=== PATIENT | male | born 1955 | race Caucasian/White ===

== ENCOUNTER → 2017-11-15 | Outpatient (CLI) | payer BC | LOC: FIMAGING 12:32 | PROVIDERS: ATTEND Neurological Surgery | DX: M50.31 Other cervical disc degeneration, high cervical region (principal); Z98.1 Arthrodesis status ==

== ENCOUNTER 2018-01-25 09:50 | Observation (INO) | payer BC ==
[2018-01-25] MEDS ORDERED: ACETAMINOPHEN 500 MG TAB PO ONE (10:31)
[2018-01-25] MEDS ORDERED: ceFAZolin 2 GM/DEXTROSE 100 ML IV ONE (10:31)
[2018-01-25] MEDS ORDERED: LR 1,000 ML IV ONE (10:31)
[2018-01-25] MEDS ORDERED: BACITRACIN 50,000 UNITS/10 ML SYR IRR ONE (10:34)
[2018-01-25] MEDS ORDERED: THROMBIN (BOVINE) 20,000 UNIT VIAL TP ONE (10:34)
[2018-01-25] MEDS ORDERED: CHLORHEXIDINE GLUC HIBICLENS 118 ML BTL TP ONE (10:34)
[2018-01-25] MEDS ORDERED: SURGIFLO MATRIX KIT WITH THROMBIN 8 ML TP ONE (10:34)
--- NOTE | 2018-01-25 12:00 | PDHPUP ---
History & Physical Update H&P update statement: This history and physical update is based on an assessment of the patient which was completed after admission or registration (within 24 hours), but prior to the surgery/procedure. H&P update: H&P reviewed & patient examined, no change in patient's condition since H&P completed (Consents signed and site marked. All questions answered.)
[2018-01-25] MEDS ORDERED: MIDAZOLAM 2 MG/2 ML VIAL IVP ONE (12:06)
--- NOTE | 2018-01-25 12:09 | PDANEPAE ---
JULITO Past Medical History - Cardiovascular History Hx Hypertension: No Hx Arrhythmias: Yes Hx Chest Pain: No Hx Coronary Artery / Peripheral Vascular Disease: No Hx CHF / Valvular Disease: No Hx Palpitations: No Cardiovascular History Comment: "caffeine makes heart beat fast". hx of pvc's - Pulmonary History Hx COPD: No Hx Asthma/Reactive Airway Disease: No Hx Recent Upper Respiratory Infection: No Hx Oxygen in Use at Home: No Hx Sleep Apnea: Yes Sleep Apnea Screening Result - Last Documented: Positive Pulmonary History Comment: ryan positive uses cpap- pt wants to only bring mask to hospital - Neurologic History Hx Cerebrovascular Accident: No Hx Seizures: No Hx Dementia: No Neurologic History Comment: numbness and tingling to left arm down ring finger. lumbar stenosis/ pain - Endocrine History Hx Diabetes: No Obesity: mild - Renal History Hx Renal Disorders: No - Liver History Hx Hepatic Disorders: No - Neurological & Psychiatric Hx Hx Neurological and Psychiatric Disorders: No - Cancer History Hx Cancer: No - Congenital Disorder History Hx Congenital Disorders: No - GI History GERD: moderate Hx Gastrointestinal Disorders: Yes Gastrointestinal History Comment: reflux. diverticulitis. hx of colon polyps removed several years ago - Other Health History Other Health History: wears computer glasses. seborrhoeic dermatitis- has prn steriod cream he uses - Chronic Pain History Chronic Pain: Yes (lower back, left hand/ arm) - Surgical History Prior Surgeries: 12/2010 with Dao. 10/2010 ACDF with Dao VILA Review of Systems Review of Systems: - Exercise capacity METS (RN): 4 METS ANE Patient History - Allergies Allergies/Adverse Reactions: daptomycin Allergy (Verified 01/24/18 15:22) dry mouth, itchy skin gabapentin [From Neurontin] Allergy (Verified 01/24/18 15:18) Hives pramipexole [From Mirapex] Allergy (Verified 01/24/18 15:12) DIZZINESS AND DISORIENTED silodosin [From Rapaflo] Allergy (Verified 01/24/18 15:22) "INCOMPATABLE WITH CPAP" tamsulosin [From Flomax] Allergy (Verified 01/24/18 15:22) "INCOMPATIBLE WITH CPAP" - Home Medications Home medications: home medication list seen and reviewed Home Medications: Acetaminophen [Tylenol ES 500 mg (*)] 1,000 mg PO BID 01/18/18 [Last Taken 01/25 02:00] Aspirin [Aspirin 325 mg (*)] 650 mg PO BID 01/18/18 [Last Taken 01/20/18] Chlorpheniramine Maleate 4 mg PO DAILY 01/18/18 [Last Taken 01/25/18 02:00] Esomeprazole Magnesium [Nexium] 20 mg PO DAILY 01/18/18 [Last Taken 01/25/18 07: 30] Herbals/Supplements -Info Only 1 ea PO DAILY 01/18/18 [Last Taken 01/20/18] Multivitamins [Multivitamin (*)] 1 each PO DAILY 01/18/18 [Last Taken 01/20/18] Testosterone IM [Testosterone 100mg/ml IM inj (*)] 55 mg IM TH 01/18/18 [Last Taken 01/20/18] diphenhydrAMINE [Benadryl 25 MG (*)] 50 mg PO HS 01/18/18 [Last Taken 01/24/18 22:30] - NPO status NPO Status: no food or drink >8 hours NPO Since - Liquids (Date): 01/25/18 NPO Since - Liquids (Time): 07:00 NPO Since - Solids (Date): 01/24/18 NPO Since - Solids (Time): 19:00 - Anes Hx Anes Hx: no prior problems - Smoking Hx Smoking Status: Never smoked - Family Anes Hx Family Hx Anesthesia Complications: none ANE Labs/Vital Signs - Vital Signs Blood Pressure: 137/84 Heart Rate: 74 Respiratory Rate: 14 O2 Sat (%): 97 Height: 175.26 cm Weight: 82.554 kg ANE Physical Exam - Airway Neck exam: FROM Mallampati Score: Class 1 Mouth exam: normal dental/mouth exam - Pulmonary Pulmonary: no respiratory distress, no rales or rhonchi, clear to auscultation - Cardiovascular Cardiovascular: regular rate and rhythym, no murmur, rub, or gallop - ASA Status ASA Status: II ANE Anesthesia Plan Anesthesia Plan: general endotracheal anesthesia
[2018-01-25] MEDS ORDERED: fentaNYL 250 MCG/5 ML INJ ONE (12:21)
[2018-01-25] MEDS ORDERED: PROPOFOL 200 MG/20 ML VIAL ONE (12:21)
[2018-01-25] MEDS ORDERED: ONDANSETRON 4 MG/2 ML VIAL ONE (12:27)
[2018-01-25] MEDS ORDERED: DEXAMETHASONE 4 MG/ML VIAL ONE ×2 (12:27)
[2018-01-25] MEDS ORDERED: ESMOLOL HCL 100 MG/10 ML VIAL IV ONE (12:28)
[2018-01-25] MEDS ORDERED: LIDOCAINE 2% 2 ML INJ ONE ×2 (12:46)
[2018-01-25] MEDS ORDERED: HYDROmorphONE/DILAUDID 1 MG/ML INJ IVP PRN (13:57)
[2018-01-25] MEDS ORDERED: ACETAMINOPHEN 500 MG TAB PO PRN (13:57)
[2018-01-25] MEDS ORDERED: oxyCODONE IR 5 MG TAB PO PRN ×2 (13:57→15:21)
[2018-01-25] MEDS ORDERED: ONDANSETRON 4 MG/2 ML VIAL IVP PRN ×2 (13:57→15:21)
[2018-01-25] MEDS ORDERED: LABETALOL HCL 5 MG/ML 20 ML MDV IVP PRN (13:57)
[2018-01-25] MEDS ORDERED: NALOXONE HCL 0.4 MG/ML INJ IVP PRN (13:57)
[2018-01-25] MEDS ORDERED: LR 500 ML IV PRN (13:57)
[2018-01-25] MEDS ORDERED: HYDROCODONE/APAP 5/325 TAB PO PRN (13:57)
[2018-01-25] MEDS ORDERED: PROMETHAZINE HCL 25 MG/ML INJ IVP PRN (13:57)
[2018-01-25] MEDS ORDERED: DIAZEPAM 5 MG/ML 1 ML SYR IVP PRN (13:57)
[2018-01-25] MEDS ORDERED: fentaNYL 100 MCG/2 ML INJ ONE (15:20)
[2018-01-25] MEDS ORDERED: diphenhydrAMINE 25 MG CAP PO PRN (15:21)
[2018-01-25] MEDS ORDERED: MAGNESIUM HYDROXIDE 30 ML UDCUP PO PRN (15:21)
[2018-01-25] MEDS ORDERED: BISACODYL 10 MG SUPP PR PRN (15:21)
[2018-01-25] MEDS ORDERED: POLYETHYLENE GLYCOL 3350 17 GM PKT PO PRN (15:21)
[2018-01-25] MEDS ORDERED: ONDANSETRON DISINTEGRATING 4 MG TAB PO PRN (15:21)
[2018-01-25] MEDS ORDERED: LACTULOSE 20 GM/30 ML UDCUP PO PRN (15:21)
[2018-01-25] MEDS: fentaNYL 100 MCG/2 ML INJ IVP PRN ×3 (15:22→15:54)
--- NOTE | 2018-01-25 15:33 | POSTOPPROG ---
Post Op Note Date of Operation: 01/25/18 Surgeon: Perry Dc Internet Webmaster: RODRIGUE Galloway Anesthesia: GET(General Endotracheal) Pre-op Diagnosis: Cervical Stenosis Post-op Diagnosis: Cervical Stenosis Indication: Cervical Stenosis Procedure: ACDF C3/4 Inf/Abcess present in the surg proc area at time of surgery?: No EBL: Minimal PA Addendum - Addendum .: S: resting comfortably O: NAD A&Ox3 MAEx4 5/5 and equal in BUE and BLE. A/P 62y/o male s/p ACDF C3/4 -Post op xrays pending -Optimize pain management -Advance diet as tolerated -DVT prophx: TEDs, SCDs, Lovenox okay POD3 -Please notify NS with any change in neuro/motor exam
[2018-01-25] MEDS ORDERED: HYDROmorphONE/DILAUDID 2 MG/ML INJ ONE (15:36)
[2018-01-25] MEDS: HYDROmorphONE/DILAUDID 2 MG/ML INJ IVP PRN ×2 (15:39→15:54)
[2018-01-25] MEDS: CYCLOBENZAPRINE 10 MG TAB PO SCH ×2 (16:25→20:50)
--- NOTE | 2018-01-25 16:56 | POSTANESTH ---
Post Anesthetic Evaluation Cardiovascular Status: Normal, Stable, Similar to Pre-Op Cond Respiratory Status: Normal, Stable, Similar to Pre-op Cond. Level of Consciousness/Mental Status: Can Participate in Eval, Alert and Oriented Pain Control: Adequate, Prn Tx Ordered Nausea/Vomiting Control: Adequate, Prn Tx Ordered Complications Possibly Related to Anesthesia: None Noted
--- NOTE | 2018-01-25 17:03 | GOP ---
DATE OF OPERATION: 01/25/2018 NEUROSURGEON: Perry Dc MD. PANMAN: RODRIGUE Dotson. PREOPERATIVE DIAGNOSIS: 1. Adjacent level breakdown C3-C4 with spinal stenosis and myelopathy. 2. History of prior anterior and posterior fusion C4 through C7. POSTOPERATIVE DIAGNOSIS: 1. Adjacent level breakdown C3-C4 with spinal stenosis and myelopathy. 2. History of prior anterior and posterior fusion C4 through C7 PROCEDURE PERFORMED: 1. Anterior arthrodesis with approach to C3-C4. 2. C3-C4 diskectomy with bilateral foraminotomies, osteophytectomies, and interbody fusion using a 7 x 14 x 11 mm titanium-coated polyetheretherketone cage filled with morcellized autograft and allograft. 3. Anterior cervical fusion C3-C4 with a 17 mm Medtronic Zevo plate. 4. Use of intraoperative fluoroscopy, less than 1-hour physician time. 5. Use of neuromonitoring. 6. Use of operating microscope. FINDINGS: per imaging SPECIMENS: None. INDICATIONS: The patient is a 62-year-old gentleman who has undergone prior anterior posterior cervical fusion with me several years ago. Did quite well for several years. He presented with worsening cervicalgia radiculopathy and signs of myelopathy. He had evidence of adjacent level breakdown at C3-C4 with spinal stenosis. After discussion of the risks, benefits, and treatment alternatives, we decided to proceed forth with the surgery as described above. DESCRIPTION OF PROCEDURE: Patient was brought to the operating theater and underwent general endotracheal anesthesia without complications. He had Venodynes, ROGER hose, and appropriate lines placed by Anesthesia. He was maintained supine on the operating table. His head was placed in slight extension. All bony processes were inspected and padded. Using lateral fluoroscopy and a spinal needle, we picked our entry point to the C3-C4 levels. This was marked as a transverse incision on the right side of his neck. This area was prepped and draped in the usual sterile surgical fashion. A time-out was completed per protocol and the patient received antibiotics within 1 hour of incision. The incision was taken down with the scalpel blade and then using monopolar, taken down through the subcutaneous tissues to the level of the platysma. The platysma was over-mined in the cranial and caudal directions. A Weitlaner was placed to maintain our exposure. We opened the fibers of the platysma cranially and caudally. Using both blunt and sharp dissection, we then traveled in a plane medial to the carotid sheath and lateral to the esophagus and trachea to reach the prevertebral fascia. We identified the cranial aspect of the previous hardware and elevated the longus coli muscle from the anterior vertebral bodies of C3 and C4. Deep retractor was placed to maintain our exposure. The microscope was brought into the field to assist with microscopic dissection and maintain illumination and magnification. We confirmed our level using lateral fluoroscopy. We placed [place] pins into the vertebral bodies of C3 and C4 and placed C3-4 into mild distraction. At this point, we completed a C3-C4 diskectomy with bilateral foraminotomies and osteophytectomies. We prepared the cartilaginous endplates and measured interbody space. We then placed a 7 x 14 x 11 mm titanium-coated PEEK cage filled with morcellized autograft and allograft into the C3-C4 disk space. We removed the C3 [place] pin and then, during removal of the C4 [place] pin, the pin broke mid shaft within the vertebral body. We then used the bur tip on the drill bit to drill circumferentially around the drill and then used the CD[employer] Removal System to reverse thread out the broken [place] pin, which we passed off the field. We then measured and secured a 17 mm Medtronic Zevo plate onto the vertebral bodies of C3 and C4. AP and lateral x- rays demonstrated excellent placement of the hardware. The wound was irrigated copiously with bacitracin irrigation. The wound was closed in multiple layers using Vicryl sutures for the deep layers and Dermabond for the skin. The patient's wounds were dressed sterilely. He was awakened, extubated, and taken to the recovery room in stable condition. The sponge, needle, and instrument count was correct at the end of the case. Please note, that this case was greater than 50% more challenging than the average surgical case secondary to the broken [place] pin and the requirement to retrieve it without removing his prior hardware. COMPLICATIONS: The tip of the [place] pin broke off during its removal in the C4 vertebral body, but this was retrieved using the CD[employer] Screw Removal System. /[id number]/MODL MTDD
[2018-01-25] MEDS: DEXAMETHASONE 4 MG/ML VIAL IVP SCH ×2 (17:32→23:52)
[2018-01-25] MEDS: SENNOSIDES/DOCUSATE SODIUM TAB PO SCH (19:53)
[2018-01-25] MEDS: FAMOTIDINE 20 MG TAB PO SCH (19:53)
[2018-01-25] MEDS: ceFAZolin 2 GM/DEXTROSE 100 ML IV SCH (19:53)
[2018-01-25] MEDS: ACETAMINOPHEN 500 MG TAB PO SCH (20:50)
[2018-01-25] MEDS ORDERED: ACETAMINOPHEN 500 MG TAB PO SCH (21:00)
[2018-01-26] MEDS: ACETAMINOPHEN 500 MG TAB PO SCH ×2 (04:52→15:06)
[2018-01-26] MEDS: ceFAZolin 2 GM/DEXTROSE 100 ML IV SCH (04:53)
--- NOTE | 2018-01-26 07:45 | NEUSURGPN ---
Assessment/Plan: S: Doing well. Swallowing well. Pain low and fine on Tylenol. O: NAD A&Ox3 MAEx4 5/5 and equal in BUE and BLE. A/P 62y/o male s/p ACDF C3/4 -Post op xrays prior to dc -Optimize pain management -Swallowing well, continue soft foods -DVT prophx: TEDs, SCDs, home today no lovenox ambulating well -Discharge home later this morning after PT and x-rays -Please notify NS with any change in neuro/motor exam -Seen by this morning as well - Physician Discussed Patient with : Dao Patient Seen by : Dao Neurosurgery Physical Exam - Vitals, I&O, Labs I and O 01/25/18 01/26/18 01/27/18 05:59 05:59 05:59 Intake Total 5 200 Output Total 1870 600 Balance 155 -400 Weight 82.554 kg 82.554 kg Intake: Oral (ml) 825 200 IV Intake (ml) 1200 Output: Urine (ml) 1850 600 Urinal 1850 600 Estimated Blood Loss (ml) 20 Other: Number of Voids Urinal 1 2 Vital Signs Temp Pulse Resp BP Pulse Ox 36.8 C 117 H 16 148/75 H 93 01/26/18 07:37 01/26/18 07:37 01/26/18 07:37 01/26/18 07:37 01/26/18 07:37 Laboratory Results 01/25/18 16:44 ICD10 Worksheet Patient Problems: Problems Problem Status Onset Spinal stenosis, cervical region Acute - ICD10 Problem Qualifiers (1) Spinal stenosis, cervical region
[2018-01-26] MEDS: CYCLOBENZAPRINE 10 MG TAB PO SCH (07:46)
[2018-01-26] MEDS: SENNOSIDES/DOCUSATE SODIUM TAB PO SCH (07:49)
[2018-01-26] MEDS: FAMOTIDINE 20 MG TAB PO SCH (07:50)
[2018-01-26] MEDS ORDERED: PANTOPRAZOLE SODIUM 40 MG TAB PO SCH (09:00)
[2018-01-26] MEDS ORDERED: CHLORPHENIRAMINE MALEATE 4 MG TAB PO SCH (09:00)
[2018-01-26 10:39] LABS: PLATELET COUNT 484 10^3/uL (150-400)
[2018-01-26 11:58] VITALS: BP 113/77
--- NOTE | 2018-01-26 14:29 | ASMTLACE ---
LACE Length of stay for Answers: 2 days current admission Acuity / Level of Answers: No Care: Did the patient have an inpatient admission? Comorbidities - select Answers: Opioid dependence all that apply / Chronic pain Other Notes: GERD # of Emergency department Answers: 0 visits in the last 6 months Score: 7 Date Signed: 01/26/2018 02:28 PM Electronically Signed By:EVA Vila
--- NOTE | 2018-01-26 14:30 | ASMTCMCOM ---
CM Note CM Note Notes: Pt had planned surgery for cervical stenosis. 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 Pt medically stable for d/c, no CM d/c needs identified. Date Signed: 01/26/2018 02:29 PM Electronically Signed By:EVA Vila
--- NOTE | 2018-01-26 16:02 | PDHOSCONS ---
History and Physical - Chief Complaint Acute neck pain - History of Present Illness Primary care provider: Dr. Leigh Primary NSGY: Dr. Dc History of present illness: 62-year-old male presents with acute neck pain located in the anterior and posterior neck, characterized as a stinging sensation anteriorly and an aching sensation posteriorly, rated as a 3/10, with onset of symptoms postoperatively on the day prior to this evaluation. Since that time, the pain has been alleviated with Tylenol, is currently rated as 1/ 10. The patient reports some mild paresthesias located in his 4th and 5th digits on his left hand and he reports that he has been able to ambulate safely since his surgery. He has yet to have a bowel movement. He denies any infectious symptoms including dysuria, cough, fever, chills. The patient currently denies any dysphagia or odynophagia, and reports that he received an IV steroid and anti-inflammatory medication postoperatively. He reports that he has been ravenous thereafter, consuming 2 meals at dinner and at breakfast. He also reports good oral intake. He reports good urine output. The patient underwent ACDF on 01/25/2018 for severe cervical stenosis and resultant ulnar nerve impairment on the left as well as balance and gait instability. He recently received a lumbar RENITA for pain located in his lower back. I was asked to consult on this patient for persistent tachycardia postoperatively. History Information - Allergies/Home Medication List Allergies/Adverse Reactions: daptomycin Allergy (Verified 01/24/18 15:22) dry mouth, itchy skin gabapentin [From Neurontin] Allergy (Verified 01/24/18 15:18) Hives pramipexole [From Mirapex] Allergy (Verified 01/24/18 15:12) DIZZINESS AND DISORIENTED silodosin [From Rapaflo] Allergy (Verified 01/24/18 15:22) "INCOMPATABLE WITH CPAP" tamsulosin [From Flomax] Allergy (Verified 01/24/18 15:22) "INCOMPATIBLE WITH CPAP" Home Medications: Acetaminophen [Tylenol ES 500 mg (*)] 1,000 mg PO BID 01/18/18 [Last Taken 01/25 02:00] Chlorpheniramine Maleate 4 mg PO DAILY 01/18/18 [Last Taken 01/25/18 02:00] Esomeprazole Magnesium [Nexium] 20 mg PO DAILY 01/18/18 [Last Taken 01/25/18 07: 30] Herbals/Supplements -Info Only 1 ea PO DAILY 01/18/18 [Last Taken 01/20/18] Multivitamins [Multivitamin (*)] 1 each PO DAILY 01/18/18 [Last Taken 01/20/18] Testosterone IM [Testosterone 100mg/ml IM inj (*)] 55 mg IM TH 01/18/18 [Last Taken 01/20/18] diphenhydrAMINE [Benadryl 25 MG (*)] 50 mg PO HS 01/18/18 [Last Taken 01/24/18 22:30] I have personally reviewed and updated: family history, medical history, social history, surgical history - Past Medical History Additional medical history: BPH and erectile dysfunction. GERD. TABITHA. History of PVCs. History of restless leg syndrome. Migraines. Diverticulitis. Severe cervical stenosis. Moderate lumbar stenosis - Surgical History Additional surgical history: 2002 hernia repair. 2010 C4-C7 ACDF with laminectomy. Recent L4-L5 and L5-S1 injections. 01/25/2018 ACDF C3-C4 - Family History Additional family history: Mother with CVA and schizophrenia, father with alcoholism - Social History Smoking Status: Never smoked Alcohol Use: Rarely Drug Use: None Additional social history: Independent in his ADLs, lives an active lifestyle Review of Systems Review of Systems: ROS: 10pt was reviewed & negative except for what was stated in HPI & below EENMT: Reports: other (Mild neck discomfort) Neurological: Reports: other (Left upper extremity paresthesias) Physical Exam Physical Exam: Temp Pulse Resp BP Pulse Ox 36.8 C 108 H 16 113/77 92 01/26/18 11:57 01/26/18 11:57 01/26/18 11:57 01/26/18 11:57 01/26/18 11:57 O2 (L/minute) 2 Constitutional: no apparent distress, appears nourished, not in pain Eyes: PERRL, anicteric sclera, EOMI Ears, Nose, Mouth, Throat: moist mucous membranes, hearing normal, ears appear normal, no oral mucosal ulcers Cardiovascular: tachycardia, No systolic murmur, No irregularly irregular, No edema Respiratory: no respiratory distress, no rales or rhonchi, clear to auscultation Gastrointestinal: normoactive bowel sounds, soft, non-tender abdomen, no palpable masses, distension (Mild) Genitourinary: no bladder fullness, no bladder tenderness Skin: warm, No erythema (Around neck incision site) Neurologic: AAOx3, sensation intact bilaterally, No weakness (Motor strength 5/ 5 bilateral upper and lower extremities), No facial droop Psychiatric: not encephalopathic, thought process linear, anxious, No agitated Lab Data & Imaging Review 01/26/18 10:25 01/26/18 10:25 WBC 19.12 10^3/uL (3.80-9.50) H 01/26/18 10:25 RBC 6.02 10^6/uL (4.40-6.38) 01/26/18 10:25 Hgb 11.7 g/dL (13.7-17.5) L 01/26/18 10:25 Hct 40.5 % (40.0-51.0) 01/26/18 10:25 MCV 67.3 fL (81.5-99.8) L 01/26/18 10:25 MCH 19.4 pg (27.9-34.1) L 01/26/18 10:25 MCHC 28.9 g/dL (32.4-36.7) L 01/26/18 10:25 RDW 19.7 % (11.5-15.2) H 01/26/18 10:25 Plt Count 484 10^3/uL (150-400) H 01/26/18 10:25 MPV 9.0 fL (8.7-11.7) 01/26/18 10:25 Neut % (Auto) 89.4 % (39.3-74.2) H 01/26/18 10:25 Lymph % (Auto) 6.3 % (15.0-45.0) L 01/26/18 10:25 [place] % (Auto) 3.2 % (4.5-13.0) L 01/26/18 10:25 Eos % (Auto) 0.0 % (0.6-7.6) L 01/26/18 10:25 Baso % (Auto) 0.2 % (0.3-1.7) L 01/26/18 10:25 Nucleat RBC Rel Count 0.0 % (0.0-0.2) 01/26/18 10:25 Absolute Neuts (auto) 17.08 10^3/uL (1.70-6.50) H 01/26/18 10:25 Absolute Lymphs (auto) 1.21 10^3/uL (1.00-3.00) 01/26/18 10:25 Absolute Monos (auto) 0.62 10^3/uL (0.30-0.80) 01/26/18 10:25 Absolute Eos (auto) 0.00 10^3/uL (0.03-0.40) L 01/26/18 10:25 Absolute Basos (auto) 0.03 10^3/uL (0.02-0.10) 01/26/18 10:25 Absolute Nucleated RBC 0.00 10^3/uL (0-0.01) 01/26/18 10:25 Immature Gran % 0.9 % (0.0-1.1) 01/26/18 10:25 Immature Gran # 0.18 10^3/uL (0.00-0.10) H 01/26/18 10:25 Platelet Estimate ADEQUATE (ADEQ) 01/26/18 10:25 Hypochromasia 1+ H 01/26/18 10:25 Microcytic Cells 1+ H 01/26/18 10:25 Elliptocytes 1+ H 01/26/18 10:25 D-Dimer 0.45 ug/mLFEU (0.00-0.50) 01/26/18 10:25 Sodium 139 mEq/L (135-145) 01/26/18 10:25 Potassium 4.6 mEq/L (3.3-5.0) 01/26/18 10:25 Chloride 104 mEq/L (97-110) 01/26/18 10:25 Carbon Dioxide 22 mEq/l (22-31) 01/26/18 10:25 Anion Gap 13 mEq/L (8-16) 01/26/18 10:25 BUN 17 mg/dL (7-23) 01/26/18 10:25 Creatinine 1.0 mg/dL (0.7-1.3) 01/26/18 10:25 Estimated GFR > 60 01/26/18 10:25 Glucose 155 mg/dL (70-100) H 01/26/18 10:25 Calcium 9.7 mg/dL (8.5-10.4) 01/26/18 10:25 Total Bilirubin 0.5 mg/dL (0.1-1.4) 01/26/18 10:25 AST 44 IU/L (17-59) 01/26/18 10:25 ALT 35 IU/L (21-72) 01/26/18 10:25 Alkaline Phosphatase 44 IU/L (38-126) 01/26/18 10:25 Troponin I < 0.012 ng/mL (0.000-0.034) 01/26/18 10:25 Total Protein 7.0 g/dL (6.3-8.2) 01/26/18 10:25 Albumin 4.3 g/dL (3.5-5.0) 01/26/18 10:25 Visualized and Interpreted EKG results: Yes EKG Interpretation: Positive for: other (EKG with a sinus tachycardia, no ST abnormalities) Assessment & Plan Assessment: 62-year-old male presents for severe cervical stenosis requiring ACDF, complicated by postoperative tachycardia Plan: 1. Tachycardia. Acute, new problem this provider, further workup indicated. The patient was experiencing asymptomatic sinus tachycardia following his surgery, medicine was consulted to further evaluate. We ruled out pulmonary embolism with a negative D-dimer, ruled out perioperative/postoperative cardiac ischemia with negative troponin, and have ruled out significant blood loss anemia with a stable hemoglobin level of 11.7. We have also ruled out significant electrolyte abnormality with a normal metabolic panel, and have ruled out atrial arrhythmia with an EKG. Reviewed outside records including his preoperative primary care provider history and physical which outlines the patient's past medical history, including history of PVCs and a preoperative EKG demonstrating normal sinus mechanism with a heart rate around 89. My suspicion is that the patient had a marginally elevated heart rate preoperatively in the setting of recently discontinuing his home scheduled and histamine which he takes consistently for insomnia. He recently discontinued this medication as well as his home aspirin and Tylenol which he takes nightly. Following his surgery, the patient received pulse dose of IV steroids, which resulted in increased appetite, anxiety, poor sleep, and likely subsequent tachycardia and mildly elevated blood pressure. The steroid affect will most likely wear off throughout the course the day today, and I would anticipate the patient's heart rate returns to a level less than 100 sometime within the next 24 hr. He does not require ongoing telemetry monitoring or inpatient hospitalization for this issue, as this will most likely be self-limited, and more insidious causes have otherwise been ruled out with the workup outlined above. I did educate the patient is that tachycardia can be associated with infectious causes, and given that his white blood cell count is 19,000 postoperatively, which is not unusual following Neurosurgery, if he does experience any infectious symptoms such as pulmonary or urinary, he should immediately follow up with his primary care provider to rule out ventilator associated pneumonia or catheter associated urinary tract infection. At the present time, the patient does not have any symptoms which would suggest either of these entities and I have communicated with the neurosurgery physician event sales assistant (Marisa Lopez) and shared that I believe the patient is safe to be discharged home with routine outpatient follow-up with Neurosurgery as well as primary care provider. 2. Cervical stenosis. Postop day 1, ACDF, adequate pain management, educated the patient is regarding postoperative constipation, will follow up with primary neurosurgery hereafter. Patient is safe to be medically discharge at this time.
--- NOTE | 2018-01-27 12:00 | CPEKG ---
Test Reason : OPEN Blood Pressure : / mmHG Vent. Rate : 109 BPM Atrial Rate : 109 BPM P-R Int : 143 ms QRS Dur : 093 ms QT Int : 327 ms P-R-T Axes : 059 081 044 degrees QTc Int : 441 ms Sinus tachycardia Borderline right axis deviation Confirmed by Atif Granados ([id number]) on 01/27/2018 11:59:58 AM Referred By: Confirmed By:Atif Granados
[2018-01-28] MEDS ORDERED: ENOXAPARIN 40 MG/0.4 ML SYR SC SCH (09:00)
== END 2018-01-26 14:54 | disposition home or self-care (01) ==
LOC: F3N 10:22
PROVIDERS: ADMIT Neurological Surgery; ATTEND Neurological Surgery
DX: M48.02 Spinal stenosis, cervical region (principal); G47.33 Obstructive sleep apnea (adult) (pediatric)
CPT/HCPCS: 22551; 72040; 76001; 92610; 93005; 97161; 97165; 97530; G0378; C1713; J0690; J1100; J1170; J2250; J2405; J2704; J3010

== ENCOUNTER 2018-06-30 11:04 | Inpatient (IN) | payer BC ==
[2018-06-30] MEDS ORDERED: ceFAZolin 2 GM/DEXTROSE 100 ML IV ONE (11:43)
[2018-06-30] MEDS ORDERED: ACETAMINOPHEN 500 MG TAB PO ONE (11:43)
[2018-06-30] MEDS ORDERED: LR 1,000 ML IV ONE (11:44)
[2018-06-30] MEDS ORDERED: EPINEPHrine 1 MG/ML INJ ONE (11:51)
[2018-06-30] MEDS ORDERED: CHLORHEXIDINE GLUC HIBICLENS 118 ML BTL TP ONE (11:51)
[2018-06-30] MEDS ORDERED: THROMBIN (BOVINE) 20,000 UNIT VIAL TP ONE (11:51)
[2018-06-30] MEDS ORDERED: BUPIVACAINE 0.25% 30 ML SDV ONE (11:51)
[2018-06-30] MEDS ORDERED: BACITRACIN 50,000 UNITS/10 ML SYR IRR ONE (11:52)
[2018-06-30] MEDS ORDERED: PROPOFOL/EMULSION 500 MG/50 ML BOTTLE IV ONE (12:58)
--- NOTE | 2018-06-30 13:39 | PDHPUP ---
History & Physical Update H&P update statement: This history and physical update is based on an assessment of the patient which was completed after admission or registration (within 24 hours), but prior to the surgery/procedure. H&P update: H&P reviewed & patient examined, no change in patient's condition since H&P completed (Consents signd and site marked. All questions answered.)
[2018-06-30] MEDS ORDERED: fentaNYL 100 MCG/2 ML INJ ONE (13:48)
[2018-06-30] MEDS ORDERED: MIDAZOLAM 2 MG/2 ML VIAL ONE (13:48)
--- NOTE | 2018-06-30 13:55 | PDANEPAE ---
JULITO Past Medical History - Cardiovascular History Hx Hypertension: No Hx Arrhythmias: Yes Hx Chest Pain: No Hx Coronary Artery / Peripheral Vascular Disease: No Hx CHF / Valvular Disease: No Hx Palpitations: No Cardiovascular History Comment: "caffeine makes heart beat fast". hx of pvc's - Pulmonary History Hx COPD: No Hx Asthma/Reactive Airway Disease: No Hx Recent Upper Respiratory Infection: No Hx Oxygen in Use at Home: No Hx Sleep Apnea: Yes Sleep Apnea Screening Result - Last Documented: Positive Pulmonary History Comment: ryan positive uses cpap- WILL BRING ENTIRE UNIT DOS - Neurologic History Hx Cerebrovascular Accident: No Hx Seizures: No Hx Dementia: No Neurologic History Comment: numbness and tingling to left arm down ring finger. lumbar stenosis/ pain - Endocrine History Hx Diabetes: No - Renal History Hx Renal Disorders: No - Liver History Hx Hepatic Disorders: No - Neurological & Psychiatric Hx Hx Neurological and Psychiatric Disorders: No - Cancer History Hx Cancer: No - Congenital Disorder History Hx Congenital Disorders: No - GI History Hx Gastrointestinal Disorders: Yes Gastrointestinal History Comment: reflux. diverticulitis. HX OF POLYPS - Other Health History Other Health History: wears computer glasses. seborrhoeic dermatitis- has prn steriod cream he uses - Chronic Pain History Chronic Pain: Yes (lower back, left hand/ arm) - Surgical History Prior Surgeries: CERVICAL FUSION 01/25/18. 10/2010 ACDF with [facility] Review of Systems Review of Systems: - Exercise capacity METS (RN): 4 METS ANE Patient History - Allergies Allergies/Adverse Reactions: daptomycin Allergy (Verified 01/24/18 15:22) dry mouth, itchy skin gabapentin [From Neurontin] Allergy (Verified 01/24/18 15:18) Hives pramipexole [From Mirapex] Allergy (Verified 01/24/18 15:12) DIZZINESS AND DISORIENTED silodosin [From Rapaflo] Allergy (Verified 01/24/18 15:22) "INCOMPATABLE WITH CPAP" tamsulosin [From Flomax] Allergy (Verified 01/24/18 15:22) "INCOMPATIBLE WITH CPAP" - Home Medications Home Medications: Testosterone IM [Testosterone 100mg/ml IM inj (*)] 100 mg IM TH 01/18/18 [Last Taken 01/20/18] Esomeprazole Magnesium [Nexium] 20 mg PO DAILY 05/31/18 [Last Taken 06/30/18] Famotidine [Pepcid 20 MG (*)] 10 mg PO DAILY18 PRN 06/01/18 [Last Taken 06/30/18 ] Herbals/Supplements -Info Only 1 ea PO DAILY 06/01/18 [Last Taken 06/23/18] Melatonin [Melatonin 5 mg] 5 mg PO DAILY@02 PRN 06/01/18 [Last Taken 06/25/18] Melatonin [Melatonin 5 mg] 10 mg PO HS 06/01/18 [Last Taken 06/25/18] Multivitamins W-Minerals [Thera M Plus Tablet (*)] 1 each PO DAILY 06/01/18 [ Last Taken 06/23/18] - NPO status NPO Since - Liquids (Date): 06/30/18 NPO Since - Liquids (Time): 12:10 NPO Since - Solids (Date): 06/29/18 NPO Since - Solids (Time): 22:00 - Smoking Hx Smoking Status: Never smoked - Family Anes Hx Family Hx Anesthesia Complications: none ANE Labs/Vital Signs - Vital Signs Blood Pressure: 140/86 Heart Rate: 74 Respiratory Rate: 16 O2 Sat (%): 96 Height: 177.8 cm Weight: 81.647 kg ANE Physical Exam - Airway Neck exam: decreased ROM Mallampati Score: Class 2 Mouth exam: normal dental/mouth exam - Pulmonary Pulmonary: no respiratory distress, no rales or rhonchi, clear to auscultation - Cardiovascular Cardiovascular: regular rate and rhythym, no murmur, rub, or gallop - ASA Status ASA Status: II, III ANE Anesthesia Plan Anesthesia Plan: general endotracheal anesthesia
[2018-06-30] MEDS ORDERED: diphenhydrAMINE 25 MG CAP PO PRN (14:18)
[2018-06-30] MEDS ORDERED: MAGNESIUM HYDROXIDE 30 ML UDCUP PO PRN (14:18)
[2018-06-30] MEDS ORDERED: LACTULOSE 20 GM/30 ML UDCUP PO PRN (14:18)
[2018-06-30] MEDS ORDERED: FAMOTIDINE 20 MG TAB PO PRN (14:18)
[2018-06-30] MEDS ORDERED: ONDANSETRON DISINTEGRATING 4 MG TAB PO PRN (14:18)
[2018-06-30] MEDS ORDERED: ONDANSETRON 4 MG/2 ML VIAL IVP PRN ×2 (14:18→14:33)
[2018-06-30] MEDS ORDERED: BISACODYL 10 MG SUPP PR PRN (14:18)
[2018-06-30] MEDS ORDERED: POLYETHYLENE GLYCOL 3350 17 GM PKT PO PRN (14:18)
[2018-06-30] MEDS ORDERED: NS 1,000 ML IV SCH (14:30)
[2018-06-30] MEDS ORDERED: ALBUTEROL 3 ML DEYVIAL IH PRN (14:33)
[2018-06-30] MEDS ORDERED: DEXAMETHASONE 4 MG/ML VIAL IVP PRN (14:33)
[2018-06-30] MEDS ORDERED: fentaNYL 100 MCG/2 ML INJ IVP PRN (14:33)
[2018-06-30] MEDS ORDERED: DIAZEPAM 5 MG/ML 1 ML SYR IVP PRN (14:33)
[2018-06-30] MEDS ORDERED: NALOXONE HCL 0.4 MG/ML INJ IVP PRN (14:33)
[2018-06-30] MEDS ORDERED: LR 500 ML IV PRN (14:33)
[2018-06-30] MEDS ORDERED: METOCLOPRAMIDE 10 MG/2 ML VIAL IVP PRN (14:33)
[2018-06-30] MEDS ORDERED: DIAZEPAM 5 MG/ML 1 ML SYR ONE (14:37)
[2018-06-30] MEDS ORDERED: METOCLOPRAMIDE 10 MG/2 ML VIAL ONE (14:46)
[2018-06-30] MEDS ORDERED: ONDANSETRON 4 MG/2 ML VIAL ONE (14:46)
[2018-06-30] MEDS ORDERED: ROCURONIUM 50 MG/5 ML VIAL ONE (14:46)
[2018-06-30] MEDS ORDERED: LIDOCAINE 2% 5 ML SDV ONE (14:46)
[2018-06-30] MEDS ORDERED: RANITIDINE 50 MG/2 ML VIAL ONE (14:46)
[2018-06-30] MEDS ORDERED: KETOROLAC 30 MG/1 ML SDV ONE (14:46)
[2018-06-30] MEDS ORDERED: ePHEDrine SULFATE 25 MG/5 ML SYR ONE (14:46)
--- NOTE | 2018-06-30 14:52 | PDMN ---
Medical Necessity Medical necessity: [facility] [place] S820 lumbar fusion: INPT only OP: L5/S1 lumbar Lami, ,L5/S1 posterior fusion, AUTH# [id number] APPROVED FOR CPT CODES 11586, 29273, 44360, 44941, 79531, [id number], AND 97429 TO BE DONE INPATIENT. APPROVED FOR 5 DAYS LOS
[2018-06-30] MEDS: FENTANYL IT ONE ×2 (16:15→16:31)
[2018-06-30] MEDS ORDERED: morphINE PF 5 MG/10 ML INJ ONE (16:22)
--- NOTE | 2018-06-30 17:12 | POSTOPPROG ---
Post Op Note Date of Operation: 06/30/18 Surgeon: Perry Dc Occupational Medicine Physician: AMBER Galloway PAC Anesthesia: GET(General Endotracheal) Pre-op Diagnosis: pars defect, lumbar stenosis Post-op Diagnosis: pars defect, lumbar stenosis Indication: pars defect, lumbar stenosis Procedure: L5/S1 anton laminectomy, L5/S1 TLIF/PSF Inf/Abcess present in the surg proc area at time of surgery?: No EBL: 50-100 Drains: Sly RICHARD Addendum - Addendum .: S: Resting comfortably O: NAD A&Ox3 MAEx4 5/5 and equal in BUE and BLE A/P 63y/o male s/p L5/S1 anton laminectomy, L5/S1 TLIF/PSF -Optimize pain management -Advance diet as tolerated -PT/OT -JPx1 -Post op xrays pending -Please notify NS with any change in neuro/motor exam
--- NOTE | 2018-06-30 17:22 | POSTANESTH ---
Post Anesthetic Evaluation Cardiovascular Status: Normal, Stable, Similar to Pre-Op Cond Respiratory Status: Normal, Stable, Similar to Pre-op Cond. Level of Consciousness/Mental Status: Unconscious Pain Control: Adequate, Prn Tx Ordered Nausea/Vomiting Control: Adequate, Prn Tx Ordered Complications Possibly Related to Anesthesia: None Noted
--- NOTE | 2018-06-30 17:32 | GOP ---
[f rep st] OPERATIVE REPORT DATE OF OPERATION: 06/30/2018 SURGEON: Perry Dc MD [facility] HOUSEPERSON: Julieth Galloway PA-C. ANESTHESIA: General. PREOPERATIVE DIAGNOSIS: 1. 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 2. Right lower extremity radiculopathy secondary to foraminal stenosis and nerve compression. 3. Treatment refractory to nonoperative intervention. POSTOPERATIVE DIAGNOSIS: 1. 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 2. Right lower extremity radiculopathy secondary to foraminal stenosis and nerve compression. 3. Treatment refractory to nonoperative intervention. PROCEDURE PERFORMED: 1. Posterior arthrodesis with approach to L5-S1. 2. Posterolateral fusion with bilateral pedicle screw placement into L5 and S1 from the [employer] 4.75 system. 3. Use of intraoperative 3D Stealth navigation. 4. Use of intraoperative fluoroscopy, less than 1 hour physician time. 5. Use of neuromonitoring. 6. Use of the operative microscope. 7. Injection of preservative-free intrathecal narcotics. 8. Matamoros laminectomy, L5-S1. 9. Right-sided L5-S1 transforaminal lumbar interbody fusion with a 9 x 23 mm titanium polyetheretherketone Elevate cage filled with morselized autograft and allograft. 10. Left-sided L5-S1 posterolateral fusion with morselized autograft and allograft. FINDINGS: per imagi SPECIMENS: None. ESTIMATED BLOOD LOSS: 100 mL. INDICATIONS: The patient is a very pleasant gentleman who has undergone multiple spinal surgeries by myself. He presented with worsening right lower extremity radiculopathy with back pain. He had imaging studies consistent with a grade 1 spondylolisthesis at L5-S1 with right-sided foraminal stenosis. After discussion of the risks, benefits, and treatment alternatives, and after failing nonoperative intervention, we decided to proceed forth with surgery as described above. DESCRIPTION OF PROCEDURE: The patient was brought to the operating theater and underwent general endotracheal anesthesia without complications. He had Venodynes, ROGER hose, and the appropriate lines placed by Anesthesia. He was then flipped prone on the Sly table and all bony processes inspected and padded. The lower lumbar region was then prepped and draped in the usual sterile surgical fashion. A time-out was completed per protocol, and the patient received antibiotics within 1 hour of incision. Using lateral fluoroscopy and a spinal needle, we then picked our entry point to the L5-S1 level. This was marked in the midline. The incision was infiltrated with Marcaine with epinephrine. The incision was taken down with the scalpel blade. Using monopolar, the incision was then taken down to the midline through the lumbodorsal fascia and a subperiosteal dissection carried out to the transverse processes of L5 and S1. Deep retractors were placed to maintain our exposure. We attached the 3D Stealth navigation clamp to the spinous process of L5 and completed a 3D Stealth navigation spin. Using 3D Stealth navigation, we picked our entry point that would give us the best approach to the L5-S1 pedicles. This was in a very [id number]-[id number]-[id number] trajectory , and therefore, I had to make 2 separate stab incisions lateral to the midline incision. Using the 3D Stealth navigation system, we tapped and placed 6.5 x 50 mm screws bilaterally at L5 and S1, from the [place] [employer] 4.75 system. Another 3D Stealth navigation spin demonstrated good placement of the hardware. At this point, the microscope was brought into the field to assist with microscopic dissection and to maintain illumination and magnification. Using a combination of the bur tip on the drill bit, Kerrison punches, and Leksell rongeur, we completed a decompressive Matamoros laminectomy at L5-S1. We distracted the interspace and completed a right-sided L5-S1 diskectomy. We prepared the cartilaginous endplates and measured the interbody space. We then placed a 9 x 23 mm titanium PEEK Elevate cage filled with morselized autograft and allograft anteriorly and toward the midline. We packed additional morcellized autograft in the disk space for interbody fusion. We let down distraction and decorticated the bone on the left side between L5 and S1. We placed 2 lordotic rods into the heads of the screws between L5 and S1 and secured them down with cap screws which were then tightened per the retail loan officer's setting. We irrigated the wound copiously with bacitracin irrigation, injected preservative- free intrathecal narcotics. We placed morselized autograft and allograft on the left side between L5-S1 for the posterolateral fusion. A drain was left in the subfascial space. The wound then closed in multiple layers with Vicryl sutures to the deep layers and Dermabond for the skin. The patient's wounds were dressed sterilely. He was then flipped supine onto the transfer cart where he was awakened, extubated , and taken to the recovery room in stable condition. There were no complications and no noted changes on neuromonitoring throughout the procedure. COMPLICATIONS: None. /[id number]/MODL MTDD
[2018-07-01] MEDS: ceFAZolin 2 GM/DEXTROSE 100 ML IV SCH ×2 (00:01→05:12)
[2018-07-01] MEDS: ACETAMINOPHEN 500 MG TAB PO SCH ×4 (00:06→21:37)
[2018-07-01] MEDS: FAMOTIDINE 20 MG TAB PO SCH ×3 (00:08→21:37)
[2018-07-01] MEDS: SENNOSIDES/DOCUSATE SODIUM TAB PO SCH ×3 (00:09→21:38)
[2018-07-01] MEDS: MELATONIN 3 MG TAB PO SCH ×2 (00:09→21:34)
[2018-07-01] MEDS ORDERED: MELATONIN 3 MG TAB PO PRN (02:00)
--- NOTE | 2018-07-01 09:14 | NEUSURGPN ---
Assessment/Plan: A/P 63y/o male s/p L5/S1 anton laminectomy, L5/S1 TLIF/PSF POD1 -Optimize pain management, discussed with patient that there are prn meds available for when his duramorph weans off - LSO when OOB -PT/OT -JPx1 -Post op xrays pending -Please notify NS with any change in neuro/motor exam -Discussed with Dr. Dc Subjective: Denies any new back pain, leg numbness, tingling or weakness Objective: NAD A&Ox3 MAEx4 5/5 and equal in BUE and BLE - Physician Discussed Patient with : [facility] Physical Exam - Vitals, I&O, Labs I and O 06/30/18 07/01/18 07/02/18 05:59 05:59 05:59 Intake Total 2367 650 Output Total 985 Balance 1382 650 Weight 82.554 kg Intake: Oral (ml) 1100 650 IV Intake (ml) 1267 Output: Urine (ml) 675 Catheter 675 Estimated Blood Loss (ml) 200 Emesis (ml) 0 LINDA Drain Output (ml) 110 #1 Back 110 Other: Intake Quantity Yes Sufficient Vital Signs Temp Pulse Resp BP Pulse Ox 36.7 C 93 17 111/70 95 07/01/18 08:00 07/01/18 08:00 07/01/18 08:00 07/01/18 08:00 07/01/18 08:00 ICD10 Worksheet Patient Problems: Problems Problem Status Onset Spinal stenosis, cervical region Acute
[2018-07-01] MEDS: PANTOPRAZOLE SODIUM 40 MG TAB PO SCH (09:20)
[2018-07-01] MEDS: oxyCODONE IR 5 MG TAB PO PRN ×3 (12:01→21:37)
[2018-07-01] MEDS: METHOCARBAMOL 750 MG TAB PO PRN ×2 (12:01→21:42)
--- NOTE | 2018-07-01 14:49 | ASMTCMCOM ---
CM Note CM Note Notes: Pt had planned surgery, resides with spouse. PT/OT clear pt for home. No CM d/c needs identified. Anticipate pt will d/c when medically stable. CM available for changes/needs. Date Signed: 07/01/2018 02:48 PM Electronically Signed By:EVA Vila
[2018-07-01] MEDS: ENOXAPARIN 40 MG/0.4 ML SYR SC SCH (16:45)
[2018-07-02] MEDS: oxyCODONE IR 5 MG TAB PO PRN ×4 (02:33→13:33)
[2018-07-02] MEDS: METHOCARBAMOL 750 MG TAB PO PRN ×2 (05:25→12:38)
[2018-07-02] MEDS: ACETAMINOPHEN 500 MG TAB PO SCH ×2 (05:25→13:33)
[2018-07-02 08:28] VITALS: BP 116/79
[2018-07-02] MEDS: ENOXAPARIN 40 MG/0.4 ML SYR SC SCH (08:33)
[2018-07-02] MEDS: SENNOSIDES/DOCUSATE SODIUM TAB PO SCH (08:33)
[2018-07-02] MEDS: FAMOTIDINE 20 MG TAB PO SCH (08:34)
[2018-07-02] MEDS: PANTOPRAZOLE SODIUM 40 MG TAB PO SCH (08:34)
--- NOTE | 2018-07-02 08:55 | NEUSURGPN ---
Assessment/Plan: A/P 63y/o male s/p L5/S1 anton laminectomy, L5/S1 TLIF/PSF POD2 -Optimize pain management, doing well on current regiment - LSO when OOB -PT/OT -JPx1, will d/c today -Post op xrays with intact hardware without evidence of failure -Please notify NS with any change in neuro/motor exam -Dispo planning -Discussed with Dr. Dc Subjective: low back pain tolerable with medication Objective: NAD &Ox3 MAEx4 5/5 and equal in BUE and BLE. Incision c/d/i. LINDA drain serosanguineous - Physician Discussed Patient with : [facility] Physical Exam - Vitals, I&O, Labs I and O 07/01/18 07/02/18 07/03/18 05:59 05:59 05:59 Intake Total 2367 1550 Output Total 985 790 Balance 1382 760 Weight 82.554 kg Intake: Oral (ml) 1100 1550 IV Intake (ml) 1267 Output: Urine (ml) 675 600 Catheter 675 Toilet 600 Estimated Blood Loss (ml) 200 Emesis (ml) 0 LINDA Drain Output (ml) 110 190 #1 Back 110 190 Other: Intake Quantity Yes Yes Sufficient Number of Voids Toilet 2 Vital Signs Temp Pulse Resp BP Pulse Ox 36.4 C 93 16 116/79 95 07/02/18 08:00 07/02/18 08:00 07/02/18 08:00 07/02/18 08:00 07/02/18 08:00 ICD10 Worksheet Patient Problems: Problems Problem Status Onset Spinal stenosis, cervical region Acute
== END 2018-07-02 14:29 | disposition home or self-care (01) | DRG 455 ==
LOC: F3N 11:04
PROVIDERS: ADMIT Neurological Surgery; ATTEND Neurological Surgery
DX: M43.17 Spondylolisthesis, lumbosacral region (principal); M51.17 Intervertebral disc disorders with radiculopathy, lumbosacral region; M48.062 Spinal stenosis, lumbar region with neurogenic claudication; G47.33 Obstructive sleep apnea (adult) (pediatric); K21.9 Gastro-esophageal reflux disease without esophagitis
CPT/HCPCS: 97116-GP; 97161-GP; 97165-GO; C1713; J0171; J0690; J1650; J1885; J2250; J2274; J2405; J2704; J2765; J2780; J3010; J3360